=== PATIENT | male | born 1990 | race Caucasian/White ===

== ENCOUNTER 2024-07-07 19:51 | Emergency (ER) | payer MEDICAID, SELFPAY ==
[~2024-07-07] VITALS: Ht 190.5 cm; Wt 92.6 kg
[2024-07-07 19:53] VITALS: BP 132/79; TEMP 98.5; O2SAT 88
[2024-07-08] MEDS ORDERED: WELLTAB40 PO (09:46)
[2024-07-08] MEDS ORDERED: BUPR1FIL (09:46)
== END 2024-07-08 01:07 | disposition left against medical advice (07) ==
LOC: M ED 19:51
DX: Z53.21 Procedure and treatment not carried out due to patient leaving prior to being seen by health care provider (principal)

== ENCOUNTER 2024-07-08 09:17 | Emergency (ER) | payer MEDICAID, OTHER ==
[~2024-07-08] VITALS: Ht 190.5 cm; Wt 93.5 kg
[2024-07-08] MEDS ORDERED: WELLTAB40 PO (09:46)
[2024-07-08] MEDS ORDERED: BUPR1FIL (09:46)
[2024-07-08] MEDS: LIDOCAINE 1% MDV 20ML VIAL SC ONE (11:35)
[2024-07-08 12:32] VITALS: BP 119/79; TEMP 97.3; O2SAT 99
== END 2024-07-08 12:39 | disposition home or self-care (01) ==
LOC: M ED 09:17
DX: S00.81XA Abrasion of other part of head, initial encounter (principal); S05.71XA Avulsion of right eye, initial encounter; V13.4XXA Pedal cycle driver injured in collision with car, pick-up truck or van in traffic accident, initial encounter; F41.9 Anxiety disorder, unspecified; F32.A Depression, unspecified; F17.200 Nicotine dependence, unspecified, uncomplicated; F19.11 Other psychoactive substance abuse, in remission; Y92.410 Unspecified street and highway as the place of occurrence of the external cause; Y93.89 Activity, other specified; Y99.9 Unspecified external cause status; Z79.899 Other long term (current) drug therapy

== ENCOUNTER 2024-07-19 11:30 | Emergency (ER) | payer OTHER ==
[~2024-07-19 11:30] MED LIST: BUPR1FIL; WELLTAB40 PO
[2024-07-19] MEDS ORDERED: IBUP80TA PO (13:24)
[2024-07-19] MEDS ORDERED: AMOX875T2 PO (13:24)
[2024-07-19 13:33] VITALS: BP 117/67; TEMP 99; O2SAT 98
== END 2024-07-19 13:41 | disposition home or self-care (01) ==
LOC: M ED 11:30
DX: K02.9 Dental caries, unspecified (principal); F41.9 Anxiety disorder, unspecified; F19.10 Other psychoactive substance abuse, uncomplicated; Z79.2 Long term (current) use of antibiotics; Z79.1 Long term (current) use of non-steroidal anti-inflammatories (NSAID); Z79.899 Other long term (current) drug therapy